=== PATIENT | female | born 1965 | race Caucasian/White ===

== ENCOUNTER → 2016-09-14 | Outpatient (REF) | payer OTHER ==
[~2016-09-14] MED LIST: GLIM1TAB PO; JANU50TA8 PO; VENL37TA OR; [UNRECOGNIZED DRUG - CODE] PO
[2016-09-14 18:19] LABS: FOLLICLE STIMULATING HORMONE 34.1 mIU/mL; LUTEINIZING HORMONE 19.5 mIU/mL
== END ==
LOC: M LAB REF 16:55
PROVIDERS: ATTEND Internal Medicine Medical Oncology
DX: C50.919 Malignant neoplasm of unspecified site of unspecified female breast (principal)

== ENCOUNTER → 2017-02-18 | Outpatient (REF) | payer OTHER | LOC: M LAB REF 13:09 | PROVIDERS: ATTEND Internal Medicine Medical Oncology | DX: C50.919 Malignant neoplasm of unspecified site of unspecified female breast (principal) ==

== ENCOUNTER → 2017-09-22 | Outpatient (REF) | payer OTHER ==
[2017-09-24 10:08] LABS: CA15-3 ANTIGEN 11.1 U/ML (<32.4)
== END ==
LOC: M LAB REF 13:14
DX: C50.919 Malignant neoplasm of unspecified site of unspecified female breast (principal)

== ENCOUNTER → 2017-09-22 | Outpatient (REF) | payer OTHER ==
[2017-09-22 14:24] LABS: THYROGLOBULIN ANTIBODY < 15.0 U/ML (<60.0)
== END ==
LOC: M LAB REF 13:16
DX: E03.9 Hypothyroidism, unspecified (principal)

== ENCOUNTER → 2018-03-22 | Outpatient (REF) | payer OTHER ==
[2018-03-22 15:23] LABS: CA15-3 ANTIGEN 14.4 U/ML (<32.4)
== END ==
LOC: M LAB REF 13:48
DX: Z00.00 Encounter for general adult medical examination without abnormal findings (principal)

== ENCOUNTER → 2018-10-04 | Outpatient (CLI) | payer OTHER ==
[~2018-10-04] MED LIST changes: +ATOR1TAB21 PO; +EXEM25TA PO; +GLIM2TAB PO; +INVO300T PO; +LEVO137T14 PO; +METF-877 PO; +METF500T13 PO; +TRUL0.5I SC; +VENL150C43 PO; +VENL75CA2 PO
--- NOTE | 2018-10-06 09:49 | REP ---
Whole body PET CT scan for restaging of breast carcinoma: The patient has history of left breast carcinoma in 2013. Additional patient history of thyroid carcinoma in 2008. Comparison is the most recent prior PET CT scan dated 10/18/2014. There were no hypermetabolic foci on the comparison PET CT scan. Whole-body scanning is performed from skull base to the upper thighs. Neck and supraclavicular areas: There are no hypermetabolic foci. Chest: There is a large hypermetabolic focus in the left breast measuring up to 5.9 cm in diameter. The maximal standard uptake value of this mass is 52.26. There are no other hypermetabolic foci in the chest. Abdomen, pelvis and upper thighs: There are no hypermetabolic foci. There is artifactual bowel and bladder radiolabeling. Impression: There is a new large hypermetabolic focus in the left breast as described. The study is performed with 9.21 mCi of F 18 FDG. Electronically Signed by Neo Nieves MD 10/04/2018 07:47 P
== END ==
LOC: M PLARAD 15:09
PROVIDERS: ATTEND Internal Medicine Hematology & Oncology
DX: C50.412 Malignant neoplasm of upper-outer quadrant of left female breast (principal); N63.20 Unspecified lump in the left breast, unspecified quadrant
CPT/HCPCS: 78815; A9552

== ENCOUNTER → 2018-10-24 | Outpatient (CLI) | payer OTHER ==
[2018-10-24 18:30] LABS: BASO % 0.6 % (0.0-1.0); EOS # 0.3 10^3/uL (0.0-0.50); EOS % 3.8 % (0.0-3.0); HEMATOCRIT 40.5 % (36.0-47.0); HEMOGLOBIN 13.7 g/dl (12.0-15.5); LYMPH # 2.7 10^3/uL (1.5-4.5); LYMPH % 41.2 % (24.0-44.0); MEAN CORPUSCULAR HEMOGLOBIN 27.7 pg (27.0-33.0); MEAN CORPUSCULAR HGB CONC 33.8 g/dl (32.0-36.5); MEAN CORPUSCULAR VOLUME 81.8 fl (80.0-96.0); MONO # 0.5 10^3/uL (0.0-0.8); NEUTROPHILS # 3.1 10^3/uL (1.8-7.7); NEUTROPHILS % 46.5 % (36.0-66.0); PLATELET COUNT, AUTOMATED 299 10^3/uL (150-450); RED BLOOD COUNT 4.95 10^6/uL (4.00-5.40); WHITE BLOOD COUNT 6.6 10^3/uL (4.0-10.0)
[2018-10-24 18:44] LABS: BLOOD UREA NITROGEN 16 MG/DL (7-18); CALCIUM LEVEL 8.8 MG/DL (8.5-10.1); CARBON DIOXIDE LEVEL 30 MEQ/L (21-32); CHLORIDE LEVEL 106 MEQ/L (98-107); CREATININE FOR GFR 0.53 MG/DL (0.55-1.30); GLOMERULAR FILTRATION RATE > 60.0 (>51); GLUCOSE, FASTING 112 MG/DL (70-100); POTASSIUM SERUM 4.4 MEQ/L (3.5-5.1); SODIUM LEVEL 142 MEQ/L (136-145)
== END ==
LOC: M WUC 17:32
PROVIDERS: ATTEND Physician Assistant
DX: R21 Rash and other nonspecific skin eruption (principal)

== ENCOUNTER → 2018-11-11 | Outpatient (CLI) | payer OTHER ==
[2018-11-11 19:30] LABS: BLOOD UREA NITROGEN 11 MG/DL (7-18); CREATININE FOR GFR 0.69 MG/DL (0.55-1.30); GLOMERULAR FILTRATION RATE > 60.0 (>51)
== END ==
LOC: M WUC 15:59
PROVIDERS: ATTEND Nurse Practitioner Adult Health
DX: C49.9 Malignant neoplasm of connective and soft tissue, unspecified (principal)

== ENCOUNTER → 2018-11-25 | Outpatient (CLI) | payer OTHER ==
[2018-11-25 19:39] LABS: BASO % 0.6 % (0.0-1.0); EOS # 0.2 10^3/uL (0.0-0.50); HEMATOCRIT 40.8 % (36.0-47.0); HEMOGLOBIN 13.6 g/dl (12.0-15.5); LYMPH # 2.6 10^3/uL (1.5-4.5); LYMPH % 41.7 % (24.0-44.0); MEAN CORPUSCULAR HEMOGLOBIN 27.8 pg (27.0-33.0); MEAN CORPUSCULAR HGB CONC 33.3 g/dl (32.0-36.5); MEAN CORPUSCULAR VOLUME 83.4 fl (80.0-96.0); MONO # 0.5 10^3/uL (0.0-0.8); MONO % 7.2 % (0.0-5.0); NEUTROPHILS # 2.9 10^3/uL (1.8-7.7); NEUTROPHILS % 46.9 % (36.0-66.0); PLATELET COUNT, AUTOMATED 291 10^3/uL (150-450); RED BLOOD COUNT 4.89 10^6/uL (4.00-5.40); WHITE BLOOD COUNT 6.3 10^3/uL (4.0-10.0)
[2018-11-25 19:43] LABS: APPEARANCE, URINE CLEAR (CLEAR); BACTERIA, URINE AUTO 1+ (NEGATIVE); BILIRUBIN, URINE AUTO NEGATIVE (NEGATIVE); BLOOD, URINE BLOOD NEGATIVE (NEGATIVE); COLOR, URINE YELLOW (YELLOW); GLUCOSE, URINE (UA) AUTO 3+ mg/dL (NEGATIVE); KETONE, URINE AUTO TRACE mg/dL (NEGATIVE); LEUKOCYTE ESTERASE, URINE AUTO NEGATIVE (NEGATIVE); MUCUS, URINE SMALL (NEGATIVE); NITRITE, URINE AUTO NEGATIVE (NEGATIVE); PROTEIN, URINE AUTO NEGATIVE (NEGATIVE); RBC, URINE AUTO 1 /HPF (0-3); SPECIFIC GRAVITY URINE AUTO 1.035 (1.002-1.035); SQUAMOUS EPITHELIAL CELL UR AU 0 /HPF (0-6); UROBILINOGEN, URINE AUTO 0.2 mg/dL (0.0-2.0); WBC, URINE AUTO 1 /HPF (0-3)
[2018-11-25 19:47] LABS: ALT/SGPT 32 U/L (12-78); BILIRUBIN,TOTAL 0.5 MG/DL (0.2-1.0); BLOOD UREA NITROGEN 10 MG/DL (7-18); CALCIUM LEVEL 8.6 MG/DL (8.5-10.1); CARBON DIOXIDE LEVEL 27 MEQ/L (21-32); CHLORIDE LEVEL 105 MEQ/L (98-107); GLOMERULAR FILTRATION RATE > 60.0 (>51); GLUCOSE, FASTING 134 MG/DL (70-100); POTASSIUM SERUM 3.7 MEQ/L (3.5-5.1); SODIUM LEVEL 142 MEQ/L (136-145); TOTAL PROTEIN 7.7 GM/DL (6.4-8.2)
== END ==
LOC: M WUC 17:47
PROVIDERS: ATTEND Nurse Practitioner
DX: C49.9 Malignant neoplasm of connective and soft tissue, unspecified (principal)

== ENCOUNTER 2019-08-03 07:47 | Day surgery (SDC) | payer OTHER ==
[~2019-08-03] VITALS: Ht 154.9 cm; Wt 80.3 kg
[~2019-08-03 07:47] MED LIST changes: -GLIM2TAB PO; +GLIM2TAB2 PO; +LEVO150T7 PO; +LIDOCAINE 2% INJ 100 MG/5 ML SDV (FOR ANES.) As Ordered ONE; +NS 1,000 ML IV ONE; +PROPOFOL 200 MG/20 ML VIAL As Ordered ONE
--- NOTE | 2019-08-03 09:14 | ROOR ---
Patient Name: Rad Sawyer Procedure Date: 08/03/2019 8:43 AM Date of : 1965 Age: 54 Room: [facility] Gender: Female Note Status: Finalized Procedure: Colonoscopy Indications: Screening for colorectal malignant neoplasm Providers: Leonardo Lara Jr, MD Referring MD: Vaishnavi Velasquez NP Requesting Provider: Medicines: Propofol per Anesthesia Complications: No immediate complications. Procedure: Pre-Anesthesia Assessment: - Prior to the procedure, a History and Physical was performed, and patient medications and allergies were reviewed. The patient is competent. The risks and benefits of the procedure and the sedation options and risks were discussed with the patient. All questions were answered and informed consent was obtained. Patient identification and proposed procedure were verified by the physician and the nurse in the pre-procedure area and in the procedure room. Mental Status Examination: alert and oriented. Airway Examination: normal oropharyngeal airway and neck mobility. Respiratory Examination: clear to auscultation. CV Examination: normal. ASA Grade Assessment: II - A patient with mild systemic disease. After reviewing the risks and benefits, the patient was deemed in satisfactory condition to undergo the procedure. The anesthesia plan was to use moderate sedation / analgesia (conscious sedation). Immediately prior to administration of medications, the patient was re-assessed for adequacy to receive sedatives. The heart rate, respiratory rate, oxygen saturations, blood pressure, adequacy of pulmonary ventilation, and response to care were monitored throughout the procedure. The physical status of the patient was re-assessed after the procedure. The Colonoscope was introduced through the anus and advanced to the cecum, identified by appendiceal orifice and ileocecal valve. The colonoscopy was performed without difficulty. The patient tolerated the procedure well. The quality of the bowel preparation was adequate. Findings: The recto-sigmoid colon, sigmoid colon, descending colon, transverse colon, ascending colon, cecum, appendiceal orifice and ileocecal valve appeared normal. A diminutive polyp was found in the recto-sigmoid colon. The polyp was removed with a jumbo cold forceps. Resection and retrieval were complete. Impression: - The recto-sigmoid colon, sigmoid colon, descending colon, transverse colon, ascending colon, cecum, appendiceal orifice and ileocecal valve are normal. - One diminutive polyp at the recto-sigmoid colon, removed with a jumbo cold forceps. Resected and retrieved. Recommendation: - Repeat colonoscopy in 5-10 years for surveillance based on pathology results. Leonardo Lara MD Leonardo Lara Jr, MD 08/03/2019 9:13:52 AM Electronically signed by Leonardo Lara Jr, MD Number of Addenda: 0 Note Initiated On: 08/03/2019 8:43 AM Estimated Blood Loss: Estimated blood loss: none.
[2019-08-03 09:35] VITALS: BP 143/82
== END 2019-08-03 09:42 | disposition home or self-care (01) ==
LOC: M OPP 07:47
PROVIDERS: ATTEND Surgery
DX: Z12.11 Encounter for screening for malignant neoplasm of colon (principal); D12.7 Benign neoplasm of rectosigmoid junction; Z79.899 Other long term (current) drug therapy; Z79.84 Long term (current) use of oral hypoglycemic drugs; Z91.048 Other nonmedicinal substance allergy status; Z85.850 Personal history of malignant neoplasm of thyroid; Z85.3 Personal history of malignant neoplasm of breast; Z92.3 Personal history of irradiation; Z92.21 Personal history of antineoplastic chemotherapy

== ENCOUNTER → 2020-02-21 | Outpatient (REF) | payer OTHER ==
[~2020-02-21] MED LIST changes: -GLIM2TAB2 PO; +GLIM2TAB4 PO; -LIDOCAINE 2% INJ 100 MG/5 ML SDV (FOR ANES.) As Ordered ONE; -NS 1,000 ML IV ONE; -PROPOFOL 200 MG/20 ML VIAL As Ordered ONE
== END ==
LOC: M SHH 14:40
PROVIDERS: ATTEND Registered Nurse
DX: S21.302A Unspecified open wound of left front wall of thorax with penetration into thoracic cavity, initial encounter (principal); L03.313 Cellulitis of chest wall; W18.30XA Fall on same level, unspecified, initial encounter; Y92.9 Unspecified place or not applicable

== ENCOUNTER → 2021-08-20 | Outpatient (REF) | payer OTHER | LOC: M LAB REF 16:24 | PROVIDERS: ATTEND Nurse Practitioner Adult Health | DX: E03.9 Hypothyroidism, unspecified (principal) ==

== ENCOUNTER → 2022-07-30 | Outpatient (CLI) | payer OTHER ==
[~2022-07-30] MED LIST changes: +JARD1TAB3; +[UNRECOGNIZED DRUG - CODE]
== END ==
LOC: M ONCR 08:43
PROVIDERS: ATTEND General Practice
DX: C49.0 Malignant neoplasm of connective and soft tissue of head, face and neck (principal); E78.5 Hyperlipidemia, unspecified; E11.9 Type 2 diabetes mellitus without complications; E89.0 Postprocedural hypothyroidism; Z85.3 Personal history of malignant neoplasm of breast; Z92.3 Personal history of irradiation; Z92.21 Personal history of antineoplastic chemotherapy; Z90.710 Acquired absence of both cervix and uterus; Z80.3 Family history of malignant neoplasm of breast; Z80.42 Family history of malignant neoplasm of prostate; Z91.09 Other allergy status, other than to drugs and biological substances; Z79.84 Long term (current) use of oral hypoglycemic drugs; Z79.899 Other long term (current) drug therapy

== ENCOUNTER → 2022-08-25 | Outpatient (CLI) | payer OTHER | LOC: M ONCR 15:21 | PROVIDERS: ATTEND General Practice | DX: C49.0 Malignant neoplasm of connective and soft tissue of head, face and neck (principal) ==

== ENCOUNTER → 2022-09-01 | Outpatient (RCR) | payer OTHER | LOC: M ONCR 08-10 10:06 | PROVIDERS: ATTEND General Practice | DX: C49.0 Malignant neoplasm of connective and soft tissue of head, face and neck (principal) ==

== ENCOUNTER → 2022-09-29 | Outpatient (RCR) | payer OTHER ==
[~2022-09-29] MED LIST changes: +OXYC1SOL3 PO
== END ==
LOC: M ONCR 09-02 14:13
PROVIDERS: ATTEND General Practice
DX: C49.0 Malignant neoplasm of connective and soft tissue of head, face and neck (principal)

== ENCOUNTER → 2022-10-09 | Outpatient (CLI) | payer OTHER | LOC: M ONCR 15:01 | PROVIDERS: ATTEND General Practice | DX: C49.9 Malignant neoplasm of connective and soft tissue, unspecified (principal); L59.8 Other specified disorders of the skin and subcutaneous tissue related to radiation; Z92.3 Personal history of irradiation ==

== ENCOUNTER → 2022-10-16 | Outpatient (CLI) | payer OTHER | LOC: M ONCR 15:02 | PROVIDERS: ATTEND General Practice | DX: C49.9 Malignant neoplasm of connective and soft tissue, unspecified (principal); L59.8 Other specified disorders of the skin and subcutaneous tissue related to radiation; Z92.3 Personal history of irradiation ==

== ENCOUNTER → 2022-12-08 | Outpatient (CLI) | payer OTHER ==
[2022-12-08 19:41] LABS: BASO % 0.7 % (0.0-1.0); EOS # 0.1 10^3/uL (0.0-0.5); EOS % 2.8 % (0.0-3.0); HEMATOCRIT 41.4 % (36.0-47.0); HEMOGLOBIN 13.8 g/dl (12.0-15.5); LYMPH # 1.3 10^3/uL (1.5-5.0); MEAN CORPUSCULAR HEMOGLOBIN 28.9 pg (27.0-33.0); MEAN CORPUSCULAR HGB CONC 33.3 g/dl (32.0-36.5); MEAN CORPUSCULAR VOLUME 86.8 fl (80.0-96.0); MONO # 0.4 10^3/uL (0.0-0.8); MONO % 9.2 % (2.0-8.0); NEUTROPHILS # 2.5 10^3/uL (1.5-8.5); NEUTROPHILS % 57.8 % (36.0-66.0); PLATELET COUNT, AUTOMATED 288 10^3/uL (150-450); RED BLOOD COUNT 4.77 10^6/uL (4.00-5.40); WHITE BLOOD COUNT 4.4 10^3/uL (4.0-10.0)
== END ==
LOC: M WUC 15:37
PROVIDERS: ATTEND Nurse Practitioner Family
DX: M19.071 Primary osteoarthritis, right ankle and foot (principal)

== ENCOUNTER → 2023-04-09 | Outpatient (REF) | payer OTHER | LOC: M LAB REF 16:36 | PROVIDERS: ATTEND Nurse Practitioner Adult Health | DX: R91.1 Solitary pulmonary nodule (principal) ==

== ENCOUNTER → 2023-06-21 | Outpatient (CLI) | payer OTHER | LOC: M WHC 14:13 | PROVIDERS: ATTEND Nurse Practitioner Adult Health | DX: Z13.820 Encounter for screening for osteoporosis (principal); Z85.3 Personal history of malignant neoplasm of breast ==

== ENCOUNTER → 2023-09-16 | Outpatient (CLI) | payer OTHER | LOC: M ONCR 08:48 | PROVIDERS: ATTEND General Practice | DX: C49.8 Malignant neoplasm of overlapping sites of connective and soft tissue (principal); Z85.3 Personal history of malignant neoplasm of breast; Z71.2 Person consulting for explanation of examination or test findings; R29.6 Repeated falls; Z79.84 Long term (current) use of oral hypoglycemic drugs; Z79.85 Long-term (current) use of injectable non-insulin antidiabetic drugs; Z91.048 Other nonmedicinal substance allergy status; Z92.21 Personal history of antineoplastic chemotherapy; Z79.899 Other long term (current) drug therapy; Z98.890 Other specified postprocedural states; Z92.3 Personal history of irradiation ==

== ENCOUNTER 2023-10-20 15:22 | Outpatient (RCR) | payer OTHER ==
[~2023-10-20 15:22] MED LIST changes: +DEXA4TA PO; +GUAI1SOL2 PO
== END 2023-10-31 ==
LOC: M ONCR 15:22
PROVIDERS: ATTEND General Practice
DX: Z51.0 Encounter for antineoplastic radiation therapy (principal); C49.0 Malignant neoplasm of connective and soft tissue of head, face and neck

== ENCOUNTER → 2023-10-27 | Outpatient (CLI) | payer OTHER | LOC: M ONCR 15:22 | PROVIDERS: ATTEND General Practice | DX: C49.0 Malignant neoplasm of connective and soft tissue of head, face and neck (principal); Z79.2 Long term (current) use of antibiotics ==

== ENCOUNTER → 2023-11-03 | Outpatient (CLI) | payer OTHER | LOC: M ONCR 15:19 | PROVIDERS: ATTEND General Practice | DX: C49.0 Malignant neoplasm of connective and soft tissue of head, face and neck (principal); C78.02 Secondary malignant neoplasm of left lung; Z85.3 Personal history of malignant neoplasm of breast; R05.9 Cough, unspecified; Z71.2 Person consulting for explanation of examination or test findings; Z79.84 Long term (current) use of oral hypoglycemic drugs; Z79.85 Long-term (current) use of injectable non-insulin antidiabetic drugs; Z79.899 Other long term (current) drug therapy; Z91.048 Other nonmedicinal substance allergy status; Z92.21 Personal history of antineoplastic chemotherapy; Z92.3 Personal history of irradiation ==

== ENCOUNTER → 2023-11-09 | Outpatient (CLI) | payer OTHER | LOC: M WUC 08:52 | PROVIDERS: ATTEND Nurse Practitioner Adult Health | DX: M25.512 Pain in left shoulder (principal); M19.012 Primary osteoarthritis, left shoulder; R91.8 Other nonspecific abnormal finding of lung field; Z98.1 Arthrodesis status; M47.814 Spondylosis without myelopathy or radiculopathy, thoracic region ==

== ENCOUNTER → 2023-11-17 | Outpatient (CLI) | payer OTHER ==
[~2023-11-17] MED LIST changes: +PROHANCE 279.3MG/ML 15ML VIAL As Ordered ONE
== END ==
LOC: M RAD 16:00
PROVIDERS: ATTEND Nurse Practitioner Adult Health
DX: R22.1 Localized swelling, mass and lump, neck (principal)
CPT/HCPCS: 71552; A9576

== ENCOUNTER → 2023-11-24 | Outpatient (CLI) | payer OTHER ==
[~2023-11-24] MED LIST changes: -PROHANCE 279.3MG/ML 15ML VIAL As Ordered ONE
== END ==
LOC: M ONCR 15:28
PROVIDERS: ATTEND General Practice
DX: R23.8 Other skin changes (principal); R20.2 Paresthesia of skin; Z92.3 Personal history of irradiation

== ENCOUNTER 2023-11-28 15:11 | Inpatient (IN) | payer OTHER ==
[2023-11-28] VITALS (8 sets, daily range): BP systolic 83–113; BP diastolic 54–79; TEMP 96.6–99.9; O2SAT 95–100
[~2023-11-28] VITALS: Ht 154.9 cm; Wt 62.4 kg
[~2023-11-28 15:11] MED LIST changes: -JARD1TAB3; +JARD1TAB3 PO; +VENLAFAXINE **XR** 75MG CAPSULE PO SCH; -[UNRECOGNIZED DRUG - CODE]; +[UNRECOGNIZED DRUG - CODE] PO
[2023-11-28 15:34] LABS: BASO # 0.1 10^3/uL (0.0-0.2); BASO % 0.4 % (0.0-1.0); EOS # 0.2 10^3/uL (0.0-0.5); EOS % 1.3 % (0.0-3.0); HEMATOCRIT 23.3 % (36.0-47.0); LYMPH # 0.8 10^3/uL (1.5-5.0); LYMPH % 5.9 % (24.0-44.0); MEAN CORPUSCULAR HEMOGLOBIN 24.4 pg (27.0-33.0); MEAN CORPUSCULAR VOLUME 81.2 fl (80.0-96.0); MONO # 1.1 10^3/uL (0.0-0.8); MONO % 8.4 % (2.0-8.0); NEUTROPHILS # 10.6 10^3/uL (1.5-8.5); NEUTROPHILS % 82.7 % (36.0-66.0); PLATELET COUNT, AUTOMATED 674 10^3/uL (150-450); RED BLOOD COUNT 2.87 10^6/uL (4.00-5.40); WHITE BLOOD COUNT 12.8 10^3/uL (4.0-10.0)
[2023-11-28 15:47] LABS: INR 1.34; PARTIAL THROMBOPLASTIN TIME 28.7 SECONDS (24.8-34.2); PROTHROMBIN TIME 16.2 SECONDS (12.5-14.5)
[2023-11-28 16:00] LABS: BLOOD UREA NITROGEN 9 MG/DL (9-23); CALCIUM LEVEL 7.6 MG/DL (8.5-10.1); CARBON DIOXIDE LEVEL 28 MMOL/L (20-31); CHLORIDE LEVEL 97 MMOL/L (98-107); CREATININE FOR GFR 0.36 MG/DL (0.55-1.30); GLOMERULAR FILTRATION RATE > 60.0 (>51); GLUCOSE, FASTING 303 MG/DL (60-100); POTASSIUM SERUM 4.4 MMOL/L (3.5-5.1); SODIUM LEVEL 133 MMOL/L (136-145)
[2023-11-28] MEDS: CALCIUM GLUCONATE 1,000 MG in D5W MINI-BAG PLUS 100 ML IV ONE (16:20)
[2023-11-28 17:30] LABS: ALBUMIN 1.6 G/DL (3.2-5.2)
[2023-11-28] MEDS ORDERED: KETO15IN5 IM (17:42)
[2023-11-28] MEDS ORDERED: OXYC20TA40 PO (17:42)
[2023-11-28] MEDS ORDERED: LEVO125T4 PO (17:42)
[2023-11-28] MEDS ORDERED: ALPR0.5T3 PO (17:42)
[2023-11-28] MEDS ORDERED: EXEM25TA PO (17:42)
[2023-11-28] MEDS ORDERED: OMEP40CA5 PO (17:42)
[2023-11-28] MEDS ORDERED: TRAZ-186 PO (17:42)
[2023-11-28] MEDS ORDERED: HYDR-4514 PO (17:42)
[2023-11-28] MEDS ORDERED: HOME MED LIST COMPLETE! XX SCH (17:45)
[2023-11-28] MEDS ORDERED: ISOVUE-370 76% 100ML VIAL As Ordered ONE (18:14)
[2023-11-28] MEDS ORDERED: oxyCODONE 5MG TAB PO PRN (18:30)
[2023-11-28] MEDS ORDERED: DEXTROSE 50% 50ML SYRINGE IV PRN (18:30)
[2023-11-28] MEDS ORDERED: ALPRAZolam 0.5 MG TAB PO PRN (18:30)
[2023-11-28] MEDS ORDERED: GLUCAGON INJ 1MG VIAL SC PRN (18:30)
[2023-11-28] MEDS ORDERED: GLUCOSE 4 GM CHEW PO PRN (18:30)
[2023-11-28] MEDS: oxyCODONE 20MG CR TAB PO SCH (18:48)
[2023-11-28] MEDS ORDERED: TRANEXAMIC ACID 100 MG/ML 10ML VIAL As Ordered ONE (19:18)
[2023-11-28] MEDS: TRANEXAMIC ACID INJection 1,000 MG in D5W 100 ML IV ONE (19:25)
[2023-11-28] MEDS: traZODone 50 MG TAB PO SCH (20:54)
[2023-11-28] MEDS ORDERED: INSULIN LISPRO (NovoLOG) PER UNIT SC SCH (21:00)
[2023-11-28 23:20] LABS: HEMATOCRIT 23.2 % (36.0-47.0); HEMOGLOBIN 7.5 g/dl (12.0-15.5); MEAN CORPUSCULAR HEMOGLOBIN 27.1 pg (27.0-33.0); MEAN CORPUSCULAR HGB CONC 32.3 g/dl (32.0-36.5); MEAN CORPUSCULAR VOLUME 83.8 fl (80.0-96.0); RED BLOOD COUNT 2.77 10^6/uL (4.00-5.40); WHITE BLOOD COUNT 14.6 10^3/uL (4.0-10.0)
[2023-11-28 23:23] LABS: PLATELET COUNT, AUTOMATED 466 10^3/uL (150-450)
[2023-11-29] MEDS ORDERED: ACETAMINOPHEN TAB 650MG DOSE (2X325MG) PO PRN (01:40)
[2023-11-29 02:08] VITALS: BP 106/59; TEMP 99.5; O2SAT 95
[2023-11-29 02:11] VITALS: BP 106/59; TEMP 99.5; O2SAT 96
[2023-11-29 02:30] VITALS: BP 107/57; TEMP 99.7; O2SAT 95
[2023-11-29 03:03] VITALS: BP 106/57; TEMP 99.7; O2SAT 95
[2023-11-29] MEDS ORDERED: LEVOTHYROXINE 125MCG TABLET (0.125MG) PO SCH (06:00)
[2023-11-29] MEDS ORDERED: INSULIN LISPRO (NovoLOG) PER UNIT SC SCH (07:30)
[2023-11-29] MEDS ORDERED: GLIMEPIRIDE 2 MG TAB PO SCH (08:00)
== END 2023-11-29 03:23 | disposition short-term general hospital (02) | DRG 812 ==
LOC: M ED 15:11 → M ED INP 17:17
PROVIDERS: ADMIT Internal Medicine Nephrology; ATTEND Internal Medicine Nephrology
PROC: 30233N1 Transfusion of Nonautologous Red Blood Cells into Peripheral Vein, Percutaneous Approach (ICD-10-PCS; principal; 2023-11-28)
DX: D62 Acute posthemorrhagic anemia (principal); C49.3 Malignant neoplasm of connective and soft tissue of thorax; C77.0 Secondary and unspecified malignant neoplasm of lymph nodes of head, face and neck; C78.1 Secondary malignant neoplasm of mediastinum; C79.51 Secondary malignant neoplasm of bone; Z79.899 Other long term (current) drug therapy; Z66 Do not resuscitate; Z88.8 Allergy status to other drugs, medicaments and biological substances; Z85.3 Personal history of malignant neoplasm of breast; Z92.21 Personal history of antineoplastic chemotherapy; Z92.3 Personal history of irradiation; E11.9 Type 2 diabetes mellitus without complications; F32.A Depression, unspecified; E03.9 Hypothyroidism, unspecified; G89.3 Neoplasm related pain (acute) (chronic); F41.9 Anxiety disorder, unspecified; R58 Hemorrhage, not elsewhere classified